=== PATIENT | female | born 1945 | race Caucasian/White ===

== ENCOUNTER 2018-11-24 08:15 | Inpatient (IN) | payer OTHER ==
[~2018-11-24] VITALS: Ht 147.3 cm; Wt 74.8 kg
[2018-11-24] MEDS ORDERED: LANTUS (09:08)
[2018-11-24] MEDS ORDERED: CARDURA PO (09:09)
[2018-11-24] MEDS ORDERED: VALSAR PO (09:09)
[2018-11-24] MEDS ORDERED: FORTAMET1000 MG PO (12:20)
[2018-11-24] MEDS ORDERED: LOPRESSOR25 MG PO (12:21)
[2018-12-15] MEDS ORDERED: VALSARTAN320 MG PO (08:04)
[2018-12-15] MEDS ORDERED: GLIMEPIRIDE4 MG PO (08:05)
[2018-12-15] MEDS ORDERED: ATORVASTATIN CA40 MG PO (08:06)
[2018-12-15] MEDS ORDERED: LEVOTHYROXINE75 MCG PO (08:06)
[2018-12-15] MEDS ORDERED: DOXAZOSIN MESYLA4 MG PO (08:06)
[2018-12-15] MEDS ORDERED: SERTRALINE HCL100 MG PO (08:07)
[2018-12-15] MEDS ORDERED: TOLTERODINE TART2 MG PO (08:07)
[2018-12-18] MEDS ORDERED: OXYC1TAB9 PO (06:31)
[2018-12-18] MEDS ORDERED: XARELTO10 MG PO (06:31)
[2018-12-18] MEDS ORDERED: INTEGRA PLUS C1 EACH PO (06:31)
== END 2018-12-18 16:42 | DRG 470 ==
LOC: SURH 12-01 08:15 → SURG 12-15 06:11 → O/R 12-15 06:11 → SURH 12-15 07:00 → SURG 12-15 13:09
PROVIDERS: ADMIT Orthopaedic Surgery Sports Medicine
PROC: 0SRC0J9 Replacement of Right Knee Joint with Synthetic Substitute, Cemented, Open Approach (ICD-10-PCS; principal; 2018-12-15 07:00)
DX: M17.11 Unilateral primary osteoarthritis, right knee (principal); M32.8 Other forms of systemic lupus erythematosus; I10 Essential (primary) hypertension; E66.8 Other obesity; E11.9 Type 2 diabetes mellitus without complications; I49.8 Other specified cardiac arrhythmias